=== PATIENT | female | born 1995 | race Caucasian/White ===

== ENCOUNTER → 2017-06-07 | Outpatient (CLI) | payer BC ==
--- NOTE | 2017-06-07 11:19 | US ---
EXAMINATION TYPE: US pelvis complete transvag DATE OF EXAM: 06/07/2017 COMPARISON: NONE CLINICAL HISTORY: R10.9 ABD PAIN. Pt states RLQ pain that started this AM TECHNIQUE: Transvaginal (TV) and Transabdominal (TA) Date of LMP: 04/27/2017 EXAM MEASUREMENTS: Uterus: 8.9 x 4.2 x 4.8 cm Endometrial Stripe: 1.1 cm Right Ovary: 3.7 x 2.2 x 2.7 cm Left Ovary: 2.6 x 1.6 x 2.7 cm 1. Uterus: Retroverted wnl 2. Endometrium: wnl 3. Right Ovary: Possible hemorrhagic cyst= 2.0 x 1.5 x 2.3 cm vs. Other etiology/ pt had HCG drawn, levels not available at time of exam 4. Left Ovary: wnl 5. Bilateral Adnexa: wnl 6. Posterior cul-de-sac: wnl Results called to Charissa at Dr's office at time of exam IMPRESSION: COMPLEX, 2 SWELLING 3 CM RIGHT OVARIAN CYST.
--- NOTE | 2017-06-07 11:20 | US ---
EXAMINATION TYPE: US abdomen APPY DATE OF EXAM: 06/07/2017 COMPARISON: NONE CLINICAL HISTORY: R10.9: UNSPECIFIED ABDOMINAL PAIN. Pt states RLQ pain that started this AM APPENDIX AP Diameter (normal < 6mm): 3 mm Measured outer wall to outer wall. Is the appendix seen in its entirety from the proximal cecum to distal end: No Is there inflammatory changes or free fluid present: No Appendix not visualized with certainty, however no abnormality could be visualized within RLQ Results called to Charissa at 's office at time of exam IMPRESSION: FAILURE TO VISUALIZE THE APPENDIX.
== END | disposition home or self-care (01) ==
LOC: RADUSWWP 10:07
PROVIDERS: ATTEND Internal Medicine
DX: N83.291 Other ovarian cyst, right side (principal)
CPT/HCPCS: 76705; 76830; 76856

== ENCOUNTER 2018-05-09 04:05 | Inpatient (IN) | payer BC, OTHER ==
[2018-05-09] MEDS ORDERED: CARBOPROST TROMETHAMINE 250 MCG/ML 1 ML AMP IM PRN (11:48)
[2018-05-09] MEDS ORDERED: LIDOCAINE 1% (PF) 10 MG/ML (30 ML SDV) SQ PRN (11:48)
[2018-05-09] MEDS ORDERED: TERBUTALINE 1 MG/ML VIAL SQ PRN (11:48)
[2018-05-09] MEDS ORDERED: METHYLERGONOVINE 0.2 MG/ML 1 ML AMP IM PRN (11:48)
[2018-05-09] MEDS ORDERED: OXYTOCIN 10 UNIT/ML 1 ML VIAL IM PRN (11:48)
[2018-05-09] MEDS ORDERED: OXYTOCIN 20 UNITS/1000 ML NS 1,000 ML IV SCH (12:00)
[2018-05-09 12:09] VITALS: BMI 21.7
[2018-05-09 12:20] LABS: Basophils % (A) 0 %; Eosinophils # (A) 0.1 k/uL (0-0.7); Eosinophils % (A) 2 %; HCT 37.2 % (34.0-46.0); HGB 12.8 gm/dL (11.4-16.0); Lymphocytes # (A) 1.3 k/uL (1.0-4.8); Lymphocytes % (A) 16 %; MCH 30.6 pg (25.0-35.0); MCHC 34.3 g/dL (31.0-37.0); MCV 89.2 fL (80.0-100.0); Mean Platelet Volume 6.9; Monocytes # (A) 0.6 k/uL (0-1.0); Monocytes % (A) 7 %; Neutrophils # (A) 5.6 k/uL (1.3-7.7); Neutrophils % (A) 72 %; Platelet Count 270 k/uL (150-450); RBC 4.17 m/uL (3.80-5.40); RDW 13.4 % (11.5-15.5); WBC 7.8 k/uL (3.8-10.6)
[2018-05-09] MEDS: LACTATED RINGERS 1,000 ML IV SCH (12:23)
--- NOTE | 2018-05-09 12:28 | P.HPOB ---
History of Present Illness H&P Date: 05/09/18 Chief Complaint: leaking of fluid This patient is a pleasant 22-year-old 1 para 0 female estimated date of confinement 05/24/2018 estimated gestational age 37-6/7 weeks who presents to labor and delivery with complaints of leaking of fluid at about 2:30 this morning. Patient's care has been uncomplicated. 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 Patient's declined any testing other than a routine ultrasound. I have counseled the patient on multiple occasions that the routine ultrasounds may not see the distal phalanges very well. Ultrasounds have been normal however. Patient is having rare contractions. Patient does have a history of herpes in the past however said no recent outbreaks and was placed prophylactically on acyclovir at 36 weeks. Review of Systems Gastrointestinal: Reports heartburn Genitourinary: Reports Menstruation: Reports amenorrhea Past Medical History Past Medical History: No Reported History Additional Past Medical History / Comment(s): Hx HSV- no current outbreak, congenital deformity of fingers and toes History of Any Multi-Drug Resistant Organisms: None Reported Past Surgical History: No Surgical Hx Reported Additional Past Surgical History / Comment(s): fingers seperated at 1 year of age Past Anesthesia/Blood Transfusion Reactions: No Reported Reaction Past Psychological History: No Psychological Hx Reported Smoking Status: Former smoker Past Alcohol Use History: None Reported Past Drug Use History: None Reported - Past Family History Mother Additional Family Medical History / Comment(s): congenital deformity of fingers and toes Medications and Allergies Home Medications Medication Instructions Recorded Confirmed Type valACYclovir [Valtrex] 500 mg PO DAILY 03/01/15 05/09/18 History Pnv No.95/Ferrous Fum/Folic AC 1 tab PO DAILY 05/09/18 05/09/18 History [ Multivitamin Tablet] Allergies Allergy/AdvReac Type Severity Reaction Status Date / Time No Known Allergies Allergy Verified 05/09/18 11:58 Exam - Vital Signs Vital signs: Vital Signs Temp Pulse Resp BP 05/09/18 11:57 97.8 F 83 16 108/67 Intake and Output 05/08/18 05/09/18 05/09/18 22:59 06:59 14:59 Other: Weight 52.163 kg - OBG Physical Exam Abdomen: bowel sounds normal, no diffuse tenderness, no bruit present, no guarding noted, no hepatomegaly, no splenomegaly, no mass Vulva: both: normal Vagina: normal moisture, no discharge Cervix: no lesion (cervix is 2 cm dilated with gross rupture membranes -2 station), no discharge Uterus: enlarged (fundal height is consistent with gestational age) Results blood work shows she is O-, rubella immune, RPR nonreactive, hepatitis B negative, HIV nonreactive, ultrasounds have been normal, Glucola was normal, group B strep was negative, patient received RhoGAM on February 28. Assessment and Plan Assessment: This is a pleasant 22-year-old 1 para 0 female 37-6/7 weeks gestation with spontaneous rupture membranes at 2:30 this morning. Patient is having irregular contractions and for this reason level augmentation of labor with Pitocin. Plan at this point is anticipate vaginal delivery. (1) Spontaneous rupture of amniotic membranes Current Visit: Yes Status: Acute Code(s): OFO1306 - SNOMED Code(s): 924494453 (2) Third trimester Current Visit: Yes Status: Acute Code(s): Z34.93 - ENCNTR FOR SUPRVSN OF NORMAL PREG, UNSP, THIRD TRIMESTER SNOMED Code(s): 63326510 (3) Rh negative status during Current Visit: Yes Status: Acute Code(s): O09.899 - SUPERVISION OF OTHER HIGH RISK PREGNANCIES, UNSP TRIMESTER; Z67.91 - UNSPECIFIED BLOOD TYPE, RH NEGATIVE SNOMED Code(s): 953566222
[2018-05-09] MEDS ORDERED: fentaNYL (PF) 50 MCG/ML 5 ML AMP ONE (12:58)
[2018-05-09] MEDS ORDERED: BUPIVACAINE (PF) 0.25% 30 ML VIAL ONE (12:58)
[2018-05-09] MEDS ORDERED: SODIUM CHLORIDE 0.9% 100 ML BAG ONE (12:58)
[2018-05-09] MEDS ORDERED: ROPIVACAINE 100 MG, fentaNYL (PF) 200 MCG in SODIUM CHLORIDE 0.9% 76 ML EPIDURAL ONE (13:35)
[2018-05-09] MEDS ORDERED: AMPICILLIN 2,000 MG in SODIUM CHLORIDE 0.9% 100 ML IVPB STA (20:54)
[2018-05-10] MEDS: LACTATED RINGERS 1,000 ML IV SCH (00:12)
--- NOTE | 2018-05-10 00:48 | P.PROBDLV ---
Vaginal Delivery Note - . Vaginal Delivery Note: Mirna progressed to complete and pushing. She pushed for almost 2 hours with the widest part of the baby's head relatively stopped at the level of the pubic pubic bones. There was a narrow angle anteriorly and despite what really felt like adequate pushing she was not bring the baby down any further. However there appeared to be ample space posteriorly if we can get the baby under the pubic bone. A discussion with her was made as well as her spouse and multiple family members on whether to proceed with a section for failure to descend or try at least 1 attempt at a vacuum-assisted delivery. Risks of vacuum-assisted delivery including cephalhematoma lacerations as well as even potentially brain injuries and bleeding into the brain were discussed very clearly with the patient and her spouse and after discussion of increased risk for bleeding or other complications intraoperatively due to how low the baby was it definitely increase her risk for injuries including bladder injuries as well as cervical lacerations and potential larger blood losses. After discussion they opted for 1 attempt with a vacuum assisted delivery. After digitally verifying left occipital anterior position based on suture lines, a Hernandez cup was placed over the baby's head and with her pushing was inflated to 40 mmHg. Using gentle traction to guide the baby down to the vaginal introitus with no pop offs and pulling during 3 contractions the baby's head was delivered without difficulty through a midline laceration. Following delivery of the head a nuchal cord 1 was noted and easily reduced. Once this was accomplished gentle downward traction was used to help assist with the delivery of the anterior shoulder followed by delivery of the posterior shoulder and the remainder the baby. Mouth nares were then bulb suctioned and baby was then placed on mother's abdomen where the umbilical cord was allowed to pulsate for 20 seconds prior to clamping and cutting. Once this was accomplished blood was collected for Rh antibody status. Inspection of the perineum revealed a fourth degree laceration. After injecting with a local anesthetic 3 interrupted 3-0 Vicryl sutures were placed to reapproximate the tissues over the rectum. Following this the external anal sphincter muscles were identified and reapproximated with a [id number]-dx-zsoak suture. Once this was accomplished a rectal exam was done verifying what felt to be good closure over the rectum. Another separate 3-0 Vicryl suture was then used to reapproximate the remainder of the laceration in usual fashion for an episiotomy. At conclusion another rectal exam was done and good rectal tone was felt to be obtained and a needle point was noted. No other findings were noted. scores were 8 and 9 at one and 5 minutes respectfully and the weight is 7 lbs. 3 oz. at this time both mother and baby appear stable.
[2018-05-10] MEDS ORDERED: AMPICILLIN 1,000 MG in SODIUM CHLORIDE 0.9% 50 ML IVPB SCH (01:00)
[2018-05-10] MEDS ORDERED: SIMETHICONE 80 MG CHEWABLE PO PRN (01:11)
[2018-05-10] MEDS ORDERED: HYDROCORTISONE 2.5% RECTAL CREAM 30 GM TUBE RECTAL PRN (01:11)
[2018-05-10] MEDS ORDERED: ZOLPIDEM 5 MG TAB PO PRN (01:11)
[2018-05-10] MEDS ORDERED: Rhogam IMMUNE GLOBULIN 1,500 UNIT/1 ML IM ONE (01:11)
[2018-05-10] MEDS ORDERED: diphenhydrAMINE 50 MG/ML 1 ML VIAL IVP PRN (01:11)
[2018-05-10] MEDS ORDERED: WITCH HAZEL 1 EACH MED..PAD TOPICAL PRN (01:11)
[2018-05-10] MEDS ORDERED: LANOLIN CREAM 5 GM TUBE TOPICAL PRN (01:11)
[2018-05-10] MEDS ORDERED: diphenhydrAMINE 25 MG CAP PO PRN (01:11)
[2018-05-10] MEDS ORDERED: BISACODYL 10 MG SUPP RECTAL PRN (01:11)
[2018-05-10] MEDS ORDERED: BENZOCAINE/MENTHOL SPRAY 1 GM/SPRAY AEROSOL TOPICAL PRN (01:11)
[2018-05-10] MEDS ORDERED: OXYTOCIN 20 UNITS/1000 ML NS 1,000 ML IV SCH (01:11)
[2018-05-10] MEDS: IBUPROFEN 600 MG TAB PO PRN ×3 (01:53→14:00)
--- NOTE | 2018-05-10 05:58 | P.PNOBGVD ---
Subjective - Subjective Patient reports: Reports appetite normal, Reports voiding normally, Reports pain well controlled, Reports ambulating normally : doing well Objective - Latest Vital Signs Latest vital signs: Vital Signs Temp Pulse Resp BP 05/10/18 02:32 86 18 102/56 05/10/18 01:58 98.0 F 60 16 104/61 05/10/18 01:32 99.6 F 73 18 119/70 05/10/18 01:17 76 18 116/67 05/10/18 01:02 76 18 116/67 05/10/18 00:47 98.9 F 92 18 120/68 05/10/18 00:32 99.1 F 91 18 120/70 05/09/18 11:57 97.8 F 83 16 108/67 Intake and Output 05/09/18 05/09/18 05/10/18 14:59 22:59 06:59 Intake Total 1000 1000 Balance 1000 1000 Intake: IV 1000 1000 Lactated Ringers 1,000 ml 1000 1000 @ 125 mls/hr IV .Q8H [facility] Rx#:[id number] Other: # Voids 1 Weight 52.163 kg - Exam Lungs: bilateral: normal Chest: Normal S1, Normal S2 Extremities: Present: normal Abdomen: Present: normal appearance, soft Uterus: Present: normal, firm Assessment and Plan Assessment: day #0. Patient is resting without complaints. Vital signs are stable she is afebrile. Uterus is firm nontender she's having normal lochia. Plan today is to continue routine care, encourage ambulation. (1) Spontaneous rupture of amniotic membranes Current Visit: Yes Status: Acute Code(s): NIN8176 - SNOMED Code(s): 521004219 (2) Third trimester Current Visit: Yes Status: Acute Code(s): Z34.93 - ENCNTR FOR SUPRVSN OF NORMAL PREG, UNSP, THIRD TRIMESTER SNOMED Code(s): 65979193 (3) Rh negative status during Current Visit: Yes Status: Acute Code(s): O09.899 - SUPERVISION OF OTHER HIGH RISK PREGNANCIES, UNSP TRIMESTER; Z67.91 - UNSPECIFIED BLOOD TYPE, RH NEGATIVE SNOMED Code(s): 523442538
[2018-05-10] MEDS: SENNOSIDES-DOCUSATE SODIUM 1 EACH TAB PO SCH ×2 (06:02→08:07)
[2018-05-10 11:09] VITALS: RESP 16
[2018-05-10] MEDS: ACETAMINOPHEN TAB 325 MG TAB PO PRN (22:20)
[2018-05-11] MEDS: SENNOSIDES-DOCUSATE SODIUM 1 EACH TAB PO SCH ×3 (03:26→19:58)
--- NOTE | 2018-05-11 06:20 | P.PNOBGVD ---
Subjective - Subjective Patient reports: Reports appetite normal, Reports voiding normally, Reports pain well controlled, Reports ambulating normally : doing well, in NICU (Infant apparently has elevated hemoglobin is getting some IV hydration.) Objective - Latest Vital Signs Latest vital signs: Vital Signs Temp Pulse Resp BP 05/11/18 00:00 98.2 F 92 16 95/55 05/10/18 16:00 98.3 F 64 16 92/54 05/10/18 08:00 97.0 F L 65 16 89/52 Intake and Output 05/10/18 05/10/18 05/11/18 14:59 22:59 06:59 Other: # Voids 1 1 # Bowel Movements 1 1 - Exam Lungs: bilateral: normal Chest: Normal S1, Normal S2 Extremities: Present: normal Abdomen: Present: normal appearance, soft Uterus: Present: normal, firm Assessment and Plan Assessment: Post day #1. Patient is resting without complaints. Her son is in the NICU secondary to elevated hemoglobin is getting some IV hydration. Patient is requesting to go home today, although she does understand there is a good chance her baby may not be able to go home felt tomorrow and the following day. Patient's vital signs are stable she is afebrile. Uterus is firm nontender she's having normal lochia. My impression this is a normal course. Plan is to continue routine care discharge home later today. (1) Spontaneous rupture of amniotic membranes Current Visit: Yes Status: Acute Code(s): VLN6586 - SNOMED Code(s): 825630384 (2) Third trimester Current Visit: Yes Status: Acute Code(s): Z34.93 - ENCNTR FOR SUPRVSN OF NORMAL PREG, UNSP, THIRD TRIMESTER SNOMED Code(s): 49011872 (3) Rh negative status during Current Visit: Yes Status: Acute Code(s): O09.899 - SUPERVISION OF OTHER HIGH RISK PREGNANCIES, UNSP TRIMESTER; Z67.91 - UNSPECIFIED BLOOD TYPE, RH NEGATIVE SNOMED Code(s): 098571412
--- NOTE | 2018-05-11 06:25 | P.DS ---
Providers Date of admission: 05/09/18 04:05 Expected date of discharge: 05/11/18 Attending physician: Omkar Payne Primary care physician: Omkar Payne - Discharge Diagnosis(es) (1) Spontaneous rupture of amniotic membranes Current Visit: Yes Status: Acute (2) Third trimester Current Visit: Yes Status: Acute (3) Rh negative status during Current Visit: Yes Status: Acute Hospital Course: Please see dictated H&P for intimate details of this patient's admission. In brief summary this is a pleasant 22-year-old 1 para 0 female 37-6/7 weeks gestation admitted to labor and delivery with spontaneous rupture membranes. Patient goes on to have a vaginal delivery of viable male . Please see dictated delivery note per Dr. Ram. Delivery is complicated by a fourth degree laceration. Post day #1 patient wishes to go home felt be stable for discharge home follow up with me in 6 weeks. Procedures: Normal spontaneous vaginal delivery Patient Condition at Discharge: Good Plan - Discharge Summary New Discharge Prescriptions: New Acetaminophen Tab [Tylenol] 650 mg PO Q4HR PRN #30 tab PRN Reason: Mild Pain Or Fever >= 100.5 Ibuprofen [Motrin] 600 mg PO Q6HR PRN #40 tab PRN Reason: Mild Pain Or Fever >= 100.5 No Action valACYclovir [Valtrex] 500 mg PO DAILY Pnv No.95/Ferrous Fum/Folic AC [ Multivitamin Tablet] 1 tab PO DAILY Discharge Medication List valACYclovir [Valtrex] 500 mg PO DAILY 03/01/15 [History] Pnv No.95/Ferrous Fum/Folic AC [ Multivitamin Tablet] 1 tab PO DAILY [History] Acetaminophen Tab [Tylenol] 650 mg PO Q4HR PRN #30 tab 05/11/18 [Rx] Ibuprofen [Motrin] 600 mg PO Q6HR PRN #40 tab 05/11/18 [Rx] Follow up Appointment(s)/Referral(s): Omkar Payne MD [Primary Care Provider] - 06/20/18 11:15 am Patient Instructions/Handouts: Vaginal Delivery (DC) Activity/Diet/Wound Care/Special Instructions: No intercourse or anything per vagina for 6 weeks. Please call if any fever, chills, excessive vaginal bleeding, and/or abdominal pain. Discharge Disposition: HOME SELF-CARE
[2018-05-11] MEDS: IBUPROFEN 600 MG TAB PO PRN ×2 (06:35→16:13)
[2018-05-11] MEDS: ACETAMINOPHEN TAB 325 MG TAB PO PRN ×2 (10:07→23:15)
--- NOTE | 2018-05-12 07:02 | P.PN ---
Progress Note - Text Progress Note Date: 05/12/18 Post day #2. Patient's baby needed to stay overnight and therefore she decided to stay in the hospital as well. Vital signs are stable she is afebrile. Uterus is firm nontender she's having normal lochia. I impression is normal course. Plan is to continue routine care discharge home today.
[2018-05-12 08:21] VITALS: BP 91/54; PULSE 80; TEMP 98
[2018-05-12] MEDS: IBUPROFEN 600 MG TAB PO PRN (08:23)
[2018-05-12] MEDS: SENNOSIDES-DOCUSATE SODIUM 1 EACH TAB PO SCH (08:24)
== END 2018-05-12 11:05 | disposition home or self-care (01) | DRG 775 ==
LOC: 4FBP 04:05
PROVIDERS: ADMIT Obstetrics & Gynecology; ATTEND Obstetrics & Gynecology
PROC: 10D07Z6 Extraction of Products of Conception, Vacuum, Via Natural or Artificial Opening (ICD-10-PCS; principal; 2018-05-10)
PROC: 0DQP0ZZ Repair Rectum, Open Approach (ICD-10-PCS; 2018-05-10)
DX: O69.81X0 Labor and delivery complicated by cord around neck, without compression, not applicable or unspecified (principal); O70.3 Fourth degree perineal laceration during delivery; O26.893 Other specified pregnancy related conditions, third trimester; Q71 Reduction defects of upper limb; Z37.0 Single live birth; Z3A.37 37 weeks gestation of pregnancy; Z67.91 Unspecified blood type, Rh negative; Z87.891 Personal history of nicotine dependence; Z86.19 Personal history of other infectious and parasitic diseases
CPT/HCPCS: 59025; 84112; 85025; 85461; 99213

== ENCOUNTER → 2019-02-13 | Outpatient (CLI) | payer BC, OTHER ==
--- NOTE | 2019-02-13 14:22 | US ---
EXAMINATION TYPE: Transabdominal DATE OF EXAM: 02/13/2019 2:06 PM COMPARISON: NONE CLINICAL HISTORY: Z36 Confirm Dates. Confirm dates EXAM PERFORMED: Transvaginal (TV) and Transabdominal (TA) EXAM MEASUREMENTS: GESTATIONAL AGE / DATING Physician Established: Not yet established Dates by LMP: 12/17/2018 (8 weeks/2 days) EDC: 09/23/2019 Dates by First Scan: This is first scan (8 weeks/3 days) EDC: 09/22/2019 Dates by Current Scan for: (8 weeks/3 days) EDC: 09/22/2019 MATERNAL ANATOMY Uterus: 9.8 x 8.9 x 7.6cm Right Ovary: 3.0 x 1.1 x 1.8 cm Left Ovary: 4.0 x 3.4 x 3.4 cm Post CDS / Adnexa: WNL Presence of free fluid: No fluid seen Presence of corpus luteal cyst: Anechoic area with peripheral vascularity seen left ovary: 3.1 x 2.6 x 2.6 cm Presence of subchorionic bleed: No GESTATION / SURVEY CRL: 1.93 (8 weeks/3 days) Yolk Sac (normal less than 6mm): 2.8 mm Heart Rate: 178 bpm Rhythm: Normal IUP: Viable IUP Date of LMP: 12/17/2018 Beta HcG (if available): N/A IMPRESSION: Findings compatible with a viable intrauterine of 8 weeks 3 days with a heart rate of 178 b pm.
[2019-02-13 14:29] LABS: HCT 38.8 % (34.0-46.0); HGB 12.9 gm/dL (11.4-16.0); MCH 29.3 pg (25.0-35.0); MCHC 33.3 g/dL (31.0-37.0); MCV 87.9 fL (80.0-100.0); Mean Platelet Volume 7.2; Platelet Count 283 k/uL (150-450); RBC 4.42 m/uL (3.80-5.40); RDW 13.9 % (11.5-15.5); WBC 6.5 k/uL (3.8-10.6)
[2019-02-13 14:38] LABS: Glucose 71 mg/dL (74-99)
[2019-02-14 04:23] LABS: Toxoplasma Antibody (IgG) <3.0 IU/mL (<7.2); Toxoplasma Antibody (IgM) <3.0 AU/mL (<8.0)
== END ==
LOC: RADUSWWP 12:42
PROVIDERS: ATTEND Obstetrics & Gynecology
DX: Z36.89 Encounter for other specified antenatal screening (principal); Z34.81 Encounter for supervision of other normal pregnancy, first trimester; Z3A.08 8 weeks gestation of pregnancy
CPT/HCPCS: 76801; 76817; 82565; 82947; 85027; 86762; 86777; 86778; 86780; 86850; 86900; 86901; 87340

== ENCOUNTER 2019-09-16 05:44 | Inpatient (IN) | payer BC, OTHER ==
[2019-09-11 15:12] VITALS: BMI 22.3
--- NOTE | 2019-09-15 12:03 | P.HPOB ---
History of Present Illness H&P Date: 09/15/19 Chief Complaint: Primary C/S due to previous traumatic vaginal delivery This patient is a pleasant 23 yr female EDC 09/23/2019 estimated gestational age 39 weeks who presents for a primary section due to previous traumatic vaginal delivery. Patient's last was complicated by vacuum extraction and subsequent 4th degree laceration. She has had some rectal symptoms since that delivery, and therefore I advised section to avoid further problems. has been otherwise uncomplicated. Patient does have known congenital / hereditary hand and foot abnormalities, but she has declined any MFM referral / testing. Her previous child is unaffected, but she herself and multiple family members have hand and foot congenital abnormalities. Review of Systems Genitourinary: Reports Menstruation: Reports amenorrhea Past Medical History Past Medical History: No Reported History Additional Past Medical History / Comment(s): Congenital deformity of fingers and toes History of Any Multi-Drug Resistant Organisms: None Reported Past Surgical History: No Surgical Hx Reported Additional Past Surgical History / Comment(s): fingers seperated at 1 year of age Past Anesthesia/Blood Transfusion Reactions: No Reported Reaction Past Psychological History: No Psychological Hx Reported Smoking Status: Former smoker Past Alcohol Use History: None Reported Past Drug Use History: None Reported - Past Family History Mother Additional Family Medical History / Comment(s): congenital deformity of fingers and toes Medications and Allergies Home Medications Medication Instructions Recorded Confirmed Type Pnv No.95/Ferrous Fum/Folic AC 1 tab PO DAILY 05/09/18 09/11/19 History [ Multivitamin Tablet] Allergies Allergy/AdvReac Type Severity Reaction Status Date / Time No Known Allergies Allergy Verified 09/11/19 15:04 Exam - OBG Physical Exam Abdomen: bowel sounds normal, no diffuse tenderness, no bruit present, no guarding noted, no hepatomegaly, no splenomegaly, no mass Vulva: both: normal Vagina: normal moisture, no discharge Cervix: no lesion, no discharge Uterus: enlarged (Fundal height is 38 cm.) Bilateral hand/foot defects Results labs: O negative (received Rhogam on 06/24/2019), Rubella Immune, RPR- HepB negative, Glucola 78, Ultrasounds have been normal. Assessment and Plan Assessment: This is a pleasant 23 yr female 39 weeks gestation with history of previous traumatic vaginal delivery who is requesting primary section. Plan is primary section. I have discussed this surgery in detail including the risks: infection, bleeding, possible injury to bowel/bladder/vessel and/or other organs. She also understands the risk of DVT and PE. We have also discussed on multiple occasions that her family history of limb defects and the limitations of ultrasounds. (1) 39 weeks gestation of Status: Acute Code(s): Z3A.39 - 39 WEEKS GESTATION OF SNOMED Code(s): 29664486 (2) Rh negative status during Status: Acute Code(s): O09.899 - SUPERVISION OF OTHER HIGH RISK PREGNANCIES, UNSP TRIMESTER; Z67.91 - UNSPECIFIED BLOOD TYPE, RH NEGATIVE SNOMED Code(s): 296621207 (3) Traumatic extension of episiotomy Status: Acute Code(s): O71.89 - OTHER SPECIFIED OBSTETRIC TRAUMA SNOMED Code(s): 75581566
[2019-09-16] MEDS ORDERED: LACTATED RINGERS 1,000 ML IV ONE (06:02)
[2019-09-16] MEDS ORDERED: LACTATED RINGERS 1,000 ML IV SCH (06:02)
[2019-09-16] MEDS ORDERED: CITRIC ACID-SODIUM CITRATE 15 ML CUP PO ONE (06:02)
[2019-09-16 06:26] LABS: Basophils % (A) 0 %; Eosinophils # (A) 0.2 k/uL (0-0.7); Eosinophils % (A) 3 %; HGB 12.5 gm/dL (11.4-16.0); Lymphocytes # (A) 1.2 k/uL (1.0-4.8); Lymphocytes % (A) 17 %; MCH 30.8 pg (25.0-35.0); MCHC 33.8 g/dL (31.0-37.0); Mean Platelet Volume 6.4; Monocytes # (A) 0.6 k/uL (0-1.0); Monocytes % (A) 9 %; Neutrophils % (A) 67 %; Platelet Count 282 k/uL (150-450); RBC 4.07 m/uL (3.80-5.40); WBC 7.4 k/uL (3.8-10.6)
[2019-09-16] MEDS ORDERED: ONDANSETRON 4 MG/2 ML VIAL ONE (07:46)
[2019-09-16] MEDS ORDERED: NALBUPHINE 10 MG/ML (1 ML AMP) ONE (07:46)
[2019-09-16] MEDS ORDERED: OXYTOCIN 10 UNIT/ML 1 ML VIAL ONE (07:46)
[2019-09-16] MEDS ORDERED: KETOROLAC 30 MG/ML 1 ML VIAL ONE (07:46)
[2019-09-16] MEDS ORDERED: MORPHINE SULFATE (PF) 0.3 MG/0.3 ML SYR ONE (07:46)
--- NOTE | 2019-09-16 08:38 | P.OP ---
Date of Procedure: 09/16/19 Preoperative Diagnosis: #1: 39-0/7 week . #2: Previous traumatic vaginal delivery requesting . Postoperative Diagnosis: Same Procedure(s) Performed: Primary low transverse section Anesthesia: spinal Surgeon: Omkar Payne [place] Interpreter #1: Rahel Patel Estimated Blood Loss (ml): 600 Pathology: none sent Condition: stable Disposition: floor Indications for Procedure: Please see dictated H&P for intimate details of this patient's admission. Brief summary is a pleasant 23-year-old 2 para 1 female 39 weeks gestation admitted to labor and delivery for primary section due to history of previous traumatic vaginal delivery. Patient understands this surgery and risks including risks of infection, bleeding, possible injury to bowel, bladder, vessels, and/or other organs. All the patient's questions are answered written consent is obtained. Operative Findings: This is a vigorous viable male Apgars 8 and 9 delivery time is 0807 hours. Double nuchal cord. Description of Procedure: This patient is taken to the operating room where she sat up and spinal anesthetic is administered without incident. She previously had a Fine catheter placed to straight drain. With an adequate level of anesthesia she has abdominal prep and drape. Scalpels and taken Pfannenstiel skin incision is made. A second scalpel is taken down to the fascia and the fascia scored. Fascial incision extended bilaterally using the Paul scissors. Fascia is dissected off the rectus muscles sharply. Rectus muscles are the peritoneum identified and entered sharply. Peritoneal incision extended superior and inferior without difficulty. Bladder blade is then placed. Bladder peritoneum was taken sharply off the lower uterine segment. Scalpels and taken a low transverse uterine incision is made. Hemostat is then used gently to enter the uterine cavity and there is loss of clear fluid. Incision is extended bluntly. 's head is guided through the incision with fundal pressure and mouth and nares are bulb suctioned. There is a double nuchal cord which is easily reduced. We then deliver the rest this 's body. Is a vigorous viable male infant Apgars are 8 and 9 delivery time is 0807 hrs. After delivery of the the umbilical cord is doubly clamped and cut it appears to be trivascular. Cord blood is obtained. Placenta is then manually extracted intact. Uterus is then externalized uterine incision demarcated with Grossman clamps. Uterine incision then closed using 0 Vicryl running locked fashion 2 layers. Excellent hemostasis is noted. Bladder peritoneum was then reapproximated using a 3-0 Vicryl running fashion. Excess fluid is removed from the abdomen and pelvis. Uterus tubes and ovaries appear normal for term gestation. Uterus placed back into the abdomen. Parietal peritoneum was then closed using 0 Vicryl running fashion. Rectus muscles were approximate Vicryl interrupted fashion. Fascia is then closed using 0 PDS. She'll incision is intact and hemostatic. Subcutaneous tissues and closed using a 3-0 Vicryl. Skin is and closed using devika. All counts are correct 3. There are no complications. and mother are stable delivery room.
[2019-09-16] MEDS ORDERED: ONDANSETRON 4 MG/2 ML VIAL IVP PRN (09:06)
[2019-09-16] MEDS ORDERED: NALOXONE 0.4 MG/ML 1 ML VIAL IV PRN (09:06)
[2019-09-16] MEDS ORDERED: OXYTOCIN 20 UNITS/1000 ML NS 1,000 ML IV SCH (09:06)
[2019-09-16] MEDS ORDERED: ACETAMINOPHEN TAB 325 MG TAB PO PRN (09:06)
[2019-09-16] MEDS ORDERED: Rhogam IMMUNE GLOBULIN 1,500 UNIT/1 ML IM ONE (09:06)
[2019-09-16] MEDS ORDERED: SIMETHICONE 80 MG CHEWABLE PO PRN (09:06)
[2019-09-16] MEDS ORDERED: ZOLPIDEM 5 MG TAB PO PRN (09:06)
[2019-09-16] MEDS ORDERED: METOCLOPRAMIDE 5 MG/ML 2 ML VIAL IVP PRN (09:06)
[2019-09-16] MEDS ORDERED: LANOLIN CREAM 5 GM TUBE TOPICAL PRN (09:06)
[2019-09-16] MEDS ORDERED: diphenhydrAMINE 50 MG/ML 1 ML VIAL IVP PRN (09:06)
[2019-09-16] MEDS ORDERED: diphenhydrAMINE 25 MG CAP PO PRN (09:06)
[2019-09-16] MEDS: SENNOSIDES-DOCUSATE SODIUM 1 EACH TAB PO SCH (10:57)
[2019-09-16] MEDS: LACTATED RINGERS 1,000 ML IV SCH ×2 (11:08→17:47)
[2019-09-16] MEDS: KETOROLAC 30 MG/ML 1 ML VIAL IVP PRN (17:05)
[2019-09-16 21:17] VITALS: RESP 16
--- NOTE | 2019-09-17 06:20 | P.PNOBGPC ---
Subjective - Subjective Patient reports: Reports appetite normal, Reports voiding normally, Reports pain well controlled, Reports ambulating normally : doing well Objective - Vital Signs Latest vital signs: Vital Signs Temp Pulse Resp BP Pulse Ox 09/17/19 04:00 98.2 F 64 16 81/47 99 09/17/19 00:00 98.2 F 62 16 78/41 97 09/16/19 20:00 98 F 61 16 87/47 98 09/16/19 16:30 97.5 F L 69 18 97/54 97 09/16/19 12:00 98.0 F 62 16 105/65 98 09/16/19 10:34 98.1 F 71 16 94/64 98 09/16/19 10:04 62 16 97/55 98 09/16/19 09:34 65 16 125/61 98 09/16/19 09:19 65 16 101/68 98 09/16/19 09:04 75 16 95/54 98 09/16/19 08:49 77 16 91/50 98 09/16/19 08:34 98.2 F 78 18 106/67 98 09/16/19 06:36 96.8 F L 82 16 108/56 Intake and Output 09/16/19 09/16/19 09/17/19 14:59 22:59 06:59 Output Total 700 1200 400 Balance -700 -1200 -400 Output: Urine 700 900 400 Uretheral (Fine) 300 Other 300 Other: # Voids 1 1 - Exam Lungs: bilateral: normal Chest: Normal S1, Normal S2 Extremities: Present: normal Abdomen: Present: normal appearance, soft. Absent: distention, tenderness Incision: Present: normal, dry, intact Uterus: Present: normal, firm Assessment and Plan Assessment: Postoperative day #1. Patient is resting without complaints. Vital signs are s table she's afebrile. Her incision is intact and dry. CBC pending at time of this dictation. Plan today is to continue ambulation, allow the patient to shower, continue regular diet, and check a CBC. (1) 39 weeks gestation of Current Visit: No Status: Acute Code(s): Z3A.39 - 39 WEEKS GESTATION OF SNOMED Code(s): 68461166 (2) Rh negative status during Current Visit: No Status: Acute Code(s): O09.899 - SUPERVISION OF OTHER HIGH RISK PREGNANCIES, UNSP TRIMESTER; Z67.91 - UNSPECIFIED BLOOD TYPE, RH NEGATIVE SNOMED Code(s): 656466237 (3) Traumatic extension of episiotomy Current Visit: No Status: Acute Code(s): O71.89 - OTHER SPECIFIED OBSTETRIC TRAUMA SNOMED Code(s): 73433577
[2019-09-17] MEDS: KETOROLAC 30 MG/ML 1 ML VIAL IVP PRN (07:39)
[2019-09-17 07:58] LABS: Basophils % (A) 0 %; Eosinophils # (A) 0.1 k/uL (0-0.7); Eosinophils % (A) 1 %; HCT 34.2 % (34.0-46.0); HGB 11.5 gm/dL (11.4-16.0); Lymphocytes # (A) 0.8 k/uL (1.0-4.8); Lymphocytes % (A) 11 %; MCH 30.9 pg (25.0-35.0); MCHC 33.7 g/dL (31.0-37.0); MCV 91.5 fL (80.0-100.0); Mean Platelet Volume 6.4; Monocytes # (A) 0.6 k/uL (0-1.0); Monocytes % (A) 9 %; Neutrophils # (A) 5.6 k/uL (1.3-7.7); Neutrophils % (A) 76 %; Platelet Count 240 k/uL (150-450); RBC 3.74 m/uL (3.80-5.40); WBC 7.4 k/uL (3.8-10.6)
[2019-09-17] MEDS: SENNOSIDES-DOCUSATE SODIUM 1 EACH TAB PO SCH ×2 (08:37→21:17)
[2019-09-17] MEDS: HYDROcodone/APAP 5-325MG 1 EACH TAB PO PRN ×2 (11:03→19:37)
--- NOTE | 2019-09-17 11:20 | P.PN ---
Progress Note - Text Anesthesia POD 1, 0645. Patient is status post section under spinal anesthesia with intra-thecal preservative free morphine 100 g. Minimal pruritus, good post-op analgesia, and no headache or other complications.
[2019-09-17] MEDS: IBUPROFEN 600 MG TAB PO PRN (13:51)
[2019-09-18] MEDS: IBUPROFEN 600 MG TAB PO PRN (04:19)
--- NOTE | 2019-09-18 06:37 | P.PNOBGPC ---
Subjective - Subjective Patient reports: Reports appetite normal, Reports voiding normally, Reports pain well controlled, Reports ambulating normally : doing well Objective - Vital Signs Latest vital signs: Vital Signs Temp Pulse Resp BP Pulse Ox 09/18/19 00:00 98.1 F 71 16 83/54 98 09/17/19 16:00 98.3 F 72 16 90/62 09/17/19 08:00 97.8 F 76 16 84/68 Intake and Output 09/17/19 09/17/19 09/18/19 14:59 22:59 06:59 Other: # Voids 1 1 1 - Exam Lungs: bilateral: normal Chest: Normal S1, Normal S2 Extremities: Present: normal Abdomen: Present: normal appearance, soft. Absent: distention, tenderness Incision: Present: normal, dry, intact Uterus: Present: normal, firm - Labs Labs: Abnormal Lab Results - Last 24 Hours (Table) 09/17/19 Range/Units 06:35 RBC 3.74 L (3.80-5.40) m/uL Lymphocytes # 0.8 L (1.0-4.8) k/uL Assessment and Plan Assessment: Postoperative day #2. Patient is resting without complaints and wishes to go home. Vital signs are stable she is afebrile. Uterus is firm nontender and her incision is intact and dry. CBC was normal yesterday. Patient's ambulating and urinating without difficulty. Plan today is to continue routine postoperative care and discharge home later today (1) 39 weeks gestation of Current Visit: No Status: Acute Code(s): Z3A.39 - 39 WEEKS GESTATION OF SNOMED Code(s): 25593845 (2) Rh negative status during Current Visit: No Status: Acute Code(s): O09.899 - SUPERVISION OF OTHER HIGH RISK PREGNANCIES, UNSP TRIMESTER; Z67.91 - UNSPECIFIED BLOOD TYPE, RH NEGATIVE SNOMED Code(s): 918860985 (3) Traumatic extension of episiotomy Current Visit: No Status: Acute Code(s): O71.89 - OTHER SPECIFIED OBSTETRIC TRAUMA SNOMED Code(s): 14991252
--- NOTE | 2019-09-18 06:44 | P.DS ---
Providers Date of admission: 09/16/19 05:44 Expected date of discharge: 09/18/19 Attending physician: Omkar Payne Primary care physician: Vincent Escalante - Discharge Diagnosis(es) (1) 39 weeks gestation of Current Visit: No Status: Acute (2) Rh negative status during Current Visit: No Status: Acute (3) Traumatic extension of episiotomy Current Visit: No Status: Acute Hospital Course: Please see dictated H&P for intimate details of this patient's admission. Brief summary this is a pleasant 23-year-old 2 para 1 female 39 weeks gestation is admitted to labor and delivery for elective primary section secondary previous traumatic vaginal delivery. Patient with a primary low transverse section for viable male . Please see dictated delivery note. Postoperative patient does well on postoperative day #2 she is felt to be stable for discharge home follow up with me in 1 week. Call should any fever, chills, excessive vaginal bleeding and/or abdominal pain. Procedures: Primary low transverse section Patient Condition at Discharge: Good Plan - Discharge Summary Discharge Rx Participant: Yes New Discharge Prescriptions: New Ibuprofen [Motrin] 600 mg PO Q6HR PRN #30 tab PRN Reason: Mild Pain Or Fever >= 100.5 HYDROcodone/APAP 5-325MG [[place] 5-325] 1 each PO Q4HR PRN #18 tab PRN Reason: Moderate Pain No Action Pnv No.95/Ferrous Fum/Folic AC [ Multivitamin Tablet] 1 tab PO DAILY Discharge Medication List Pnv No.95/Ferrous Fum/Folic AC [ Multivitamin Tablet] 1 tab PO DAILY 05/09/18 [History] HYDROcodone/APAP 5-325MG [[place] 5-325] 1 each PO Q4HR PRN #18 tab 09/18/19 [Rx] Ibuprofen [Motrin] 600 mg PO Q6HR PRN #30 tab 09/18/19 [Rx] Follow up Appointment(s)/Referral(s): Omkar Payne MD [STAFF PHYSICIAN] - 09/26/19 (Patient also has a appointment on October 29 at 10:15 AM) Patient Instructions/Handouts: (DC) Activity/Diet/Wound Care/Special Instructions: No heavy lifting or strenuous activity for 6 weeks. No intercourse or anything per vagina for 6 weeks. Please call if any fever, chills, excessive vaginal bleeding, and/or abdominal pain. Discharge Disposition: HOME SELF-CARE
[2019-09-18 08:12] VITALS: BP 94/55; PULSE 79; TEMP 97.7
[2019-09-18] MEDS: HYDROcodone/APAP 5-325MG 1 EACH TAB PO PRN (10:21)
[2019-09-18] MEDS: SENNOSIDES-DOCUSATE SODIUM 1 EACH TAB PO SCH (10:35)
== END 2019-09-18 14:40 | disposition home or self-care (01) | DRG 788 ==
LOC: 4FBP 05:44
PROVIDERS: ADMIT Obstetrics & Gynecology; ATTEND Obstetrics & Gynecology
PROC: 10D00Z1 Extraction of Products of Conception, Low, Open Approach (ICD-10-PCS; principal; 2019-09-16 08:00)
DX: O69.81X0 Labor and delivery complicated by cord around neck, without compression, not applicable or unspecified (principal); Z37.0 Single live birth; Z3A.39 39 weeks gestation of pregnancy; Z87.891 Personal history of nicotine dependence; O26.893 Other specified pregnancy related conditions, third trimester; Z67.91 Unspecified blood type, Rh negative
CPT/HCPCS: 85025; 85461; 86850; 86900; 86901

== ENCOUNTER 2019-10-05 20:17 | Emergency (ER) | payer BC, OTHER ==
[2019-10-05 20:27] VITALS: BP 112/75; PULSE 81; RESP 18; TEMP 97.6
[2019-10-05 21:23] LABS: Appearance,Urine Clear (Clear); Bacteria,Urine Rare /hpf; Basophils # (A) 0.1 k/uL (0-0.2); Basophils % (A) 1 %; Bilirubin,Urine Negative (Negative); Blood,Urine Moderate (Negative); Color,Urine Yellow; Eosinophils # (A) 0.3 k/uL (0-0.7); Eosinophils % (A) 5 %; Glucose,Urine (UA) Negative (Negative); HCT 41.8 % (34.0-46.0); Ketones,Urine Negative (Negative); Leukocyte Esterase,Urine Small (Negative); Lymphocytes # (A) 1.4 k/uL (1.0-4.8); Lymphocytes % (A) 28 %; MCH 30.4 pg (25.0-35.0); MCHC 33.5 g/dL (31.0-37.0); MCV 90.9 fL (80.0-100.0); Mean Platelet Volume 6.1; Monocytes # (A) 0.3 k/uL (0-1.0); Monocytes % (A) 6 %; Mucus,Urine Rare /hpf; Neutrophils % (A) 57 %; Nitrite,Urine Negative (Negative); Platelet Count 348 k/uL (150-450); Protein,Urine Negative (Negative); RBC,Urine 10 /hpf (0-5); RDW 11.8 % (11.5-15.5); Specific Gravity,Urine 1.013 (1.001-1.035); Urobilinogen,Urine <2.0 mg/dL (<2.0); WBC 5.2 k/uL (3.8-10.6); WBC,Urine 3 /hpf (0-5)
[2019-10-05 21:33] LABS: ALT 18 U/L (9-52); AST 24 U/L (14-36); African American GFR (CKD) >90 (>60 ml/min/1.73 sqM); Albumin 4.3 g/dL (3.5-5.0); Alkaline Phosphatase 103 U/L (38-126); Anion Gap 8 mmol/L; Blood Urea Nitrogen 12 mg/dL (7-17); Calcium 9.9 mg/dL (8.4-10.2); Carbon Dioxide 26 mmol/L (22-30); Chloride 109 mmol/L (98-107); Glucose 103 mg/dL (74-99); Non-African American GFR(CKD) >90 (>60 ml/min/1.73 sqM); Potassium 4.1 mmol/L (3.5-5.1); Sodium 143 mmol/L (137-145); Total Bilirubin 0.2 mg/dL (0.2-1.3); Total Protein 7.5 g/dL (6.3-8.2)
--- NOTE | 2019-10-05 22:56 | US ---
EXAMINATION TYPE: US transvaginal DATE OF EXAM: 10/05/2019 COMPARISON: US CLINICAL HISTORY: vaginal bleeding . Vaginal bleeding today 3 weeks post C section delivery, prior va ginal bleeding and [employer] was aware; breast feeding; TECHNIQUE: Transvaginal (TV). Transvaginal sonographic images were medically necessary to better as sess the following anatomy: endometrium Date of LMP: unknown EXAM MEASUREMENTS: Uterus: 10.8 x 7.2 x 6.5 cm Endometrium: fluid area within = 6.2 x 2.5 x 2.6cm Right Ovary: 3.1 x 2.5 x 2.3 cm Left Ovary: cm 1. Uterus: retroverted 2. Endometrium: complex fluid area within and as measured above 3. Right Ovary: small follicles seen 4. Left Ovary: small follicles seen Spectral, color and waveform Doppler imaging shows good arterial and venous flow within the ovaries ; there is no evidence for ovarian torsion. 5. Bilateral Adnexa: wnl 6. Posterior cul-de-sac: small amount of free fluid is noted = 2.3 x 4.5 x 1.6 x 0.523 = 8.7ml (wnl as is less than 10.0ml) IMPRESSION: There is fluid-filled enlarged endometrial cavity that measures 6 x 2.6 cm. This could be ongoing ble eding and blood clot. Retained products not excluded.. Small amount of free fluid in the pelvis. No evidence of ovarian torsion. No adnexal mass.
--- NOTE | 2019-10-06 00:12 | ED ---
General Adult HPI - General Chief complaint: Vaginal Bleeding Stated complaint: Vaginal bleeding Time Seen by Provider: 10/05/19 20:33 Source: patient, RN notes reviewed, old records reviewed Mode of arrival: ambulatory Limitations: no limitations - History of Present Illness Initial comments: 23-year-old female patient with a pertinent past history of a section on September 16 presents to ED for chief complaint of vaginal bleeding. Patient reports that this began approximately one hour prior to arrival in the ED. Reports it is dark red blood. Prostate extremely mild amount of suprapubic discomfort. Denies any other discharge from vaginal region. Denies any fevers chills. Systemic: Pt denies fatigue, fever/chills, rash. Pt denies weakness, night sweats, weight loss. Neuro: Pt denies headache, visual disturbances, syncope or pre-syncope. HEENT: Pt denies ocular discharge or irritation, otalgia, rhinorrhea, pharyngitis or notable lymphadenopathy. Cardiopulmonary: Pt denies chest pain, SOB, heart palpitations, dyspnea on exertion. Abdominal/GI: Pt denies abdominal pain, n/v/d. : Pt denies dysuria, burning w/ urination, frequency/urgency. Denies new onset urinary or bowel incontinence. MSK: Pt denies myalgia, loss of strength or function in extremities. Neuro: Pt denies new onset weakness, paresthesias. - Related Data Home Medications Medication Instructions Recorded Confirmed Pnv No.95/Ferrous Fum/Folic AC 1 tab PO DAILY 05/09/18 09/16/19 [ Multivitamin Tablet] Previous Rx's Medication Instructions Recorded HYDROcodone/APAP 5-325MG [[place] 1 each PO Q4HR PRN #18 tab 09/18/19 5-325] Ibuprofen [Motrin] 600 mg PO Q6HR PRN #30 tab 09/18/19 Allergies Allergy/AdvReac Type Severity Reaction Status Date / Time No Known Allergies Allergy Verified 09/11/19 15:04 Review of Systems ROS Statement: Those systems with pertinent positive or pertinent negative responses have been documented in the HPI. ROS Other: All systems not noted in ROS Statement are negative. Past Medical History Past Medical History: No Reported History Additional Past Medical History / Comment(s): Congenital deformity of fingers and toes History of Any Multi-Drug Resistant Organisms: None Reported Past Surgical History: No Surgical Hx Reported, Section Additional Past Surgical History / Comment(s): fingers seperated at 1 year of age Past Anesthesia/Blood Transfusion Reactions: No Reported Reaction Past Psychological History: No Psychological Hx Reported Smoking Status: Former smoker Past Alcohol Use History: None Reported Past Drug Use History: None Reported - Past Family History Mother Additional Family Medical History / Comment(s): congenital deformity of fingers and toes General Exam - General Exam Comments Initial Comments: Constitutional: NAD, AOX3, Pt has pleasant affect. HEENT: NC/AT, trachea midline, neck supple, no lymphadenopathy. Posterior pharynx non erythematous, without exudates. External ears appear normal, without discharge. Mucous membranes moist. Eyes PERRLA, EOM intact. There is no scleral icterus. No pallor noted. Cardiopulmonary: RRR, no murmurs, rubs or gallops, no JVD noted. Lungs CTAB in anterior and posterior morales. No peripheral edema. Abdominal exam: Abdomen soft and non-distended. Abdomen non-tender to palpation in all 4 quadrants. No ecchymoses. Bowel sounds active in LLQ. No hepatosplenomegaly. No ecchymosis Neuro: CN II-XII grossly intact. No nuchal rigidity. No raccon eyes, no lozoya sign, no hemotympanum. No cervical spinal tenderness. MSK: No posterior calf tenderness bilaterally, homans sign negative bilaterally. Posterior tibialis and radial pulse +2 bilaterally. Sensation intact in upper and lower extremities. Full active ROM in upper and lower extremities, 5/5 stregnth. Pelvic: Chaperoned by ANEUDY Dong. Pelvic exam displayed mild amount of blood in the posterior vaginal vault. Small blood clot noted from cervical os. Os is closed. No lesions no ulcerations. Bimanual exam displayed very mild cervical motion tenderness. Limitations: no limitations Course Vital Signs 10/05/19 20:25 Temperature 97.6 F Pulse Rate 81 Respiratory 18 Rate Blood Pressure 112/75 O2 Sat by Pulse 97 Oximetry Medical Decision Making - Medical Decision Making 23-year-old female patient with a pertinent past history of a section on September 16 presents to ED for chief complaint of vaginal bleeding. Patient reports that this began approximately one hour prior to arrival in the ED. Reports it is dark red blood. Prostate extremely mild amount of suprapubic discomfort. Denies any other discharge from vaginal region. Denies any fevers chills. Patient will signs stable, afebrile. Physical exam revealed: Abdomen soft, nontender to palpation, no ecchymoses. Pelvic exam displayed mild amount of blood in the posterior vaginal vault. Small blood clot noted from cervical os. Os is closed. No lesions no ulcerations. Bimanual exam displayed very mild cervical motion tenderness. CBC, CMP non-impressive. Hemoglobin 14. Transvaginal ultrasound displayed fluid-filled enlarged endometrial cavity measuring 6 x 2.6 cm. This could be ongoing bleeding or blood clot. Retained products excluded. Small amount of free fluid in the pelvis. She was evaluated by [employer] TE[employer] Dr. Ram. He believes that this is likely a blood clot liquefying. Offered her D&C in the morning. She declined. He recommended discharge with close patient follow-up on Monday. Return precautions for bleeding or pain. Case discussed with Dr. Han. - Lab Data Result diagrams: 10/05/19 21:13 10/05/19 21:13 Lab Results 10/05/19 10/05/19 10/05/19 Range/Units 21:13 21:13 21:13 WBC 5.2 (3.8-10.6) k/uL RBC 4.60 (3.80-5.40) m/uL Hgb 14.0 (11.4-16.0) gm/dL Hct 41.8 (34.0-46.0) % MCV 90.9 (80.0-100.0) fL MCH 30.4 (25.0-35.0) pg MCHC 33.5 (31.0-37.0) g/dL RDW 11.8 (11.5-15.5) % Plt Count 348 (150-450) k/uL Neutrophils % 57 % Lymphocytes % 28 % Monocytes % 6 % Eosinophils % 5 % Basophils % 1 % Neutrophils # 3.0 (1.3-7.7) k/uL Lymphocytes # 1.4 (1.0-4.8) k/uL Monocytes # 0.3 (0-1.0) k/uL Eosinophils # 0.3 (0-0.7) k/uL Basophils # 0.1 (0-0.2) k/uL Sodium 143 (137-145) mmol/L Potassium 4.1 (3.5-5.1) mmol/L Chloride 109 H (98-107) mmol/L Carbon Dioxide 26 (22-30) mmol/L Anion Gap 8 mmol/L BUN 12 (7-17) mg/dL Creatinine 0.69 (0.52-1.04) mg/dL Est GFR (CKD-EPI)AfAm >90 (>60 ml/min/1.73 sqM) Est GFR (CKD-EPI)NonAf >90 (>60 ml/min/1.73 sqM) Glucose 103 H (74-99) mg/dL Calcium 9.9 (8.4-10.2) mg/dL Total Bilirubin 0.2 (0.2-1.3) mg/dL AST 24 (14-36) U/L ALT 18 (9-52) U/L Alkaline Phosphatase 103 (38-126) U/L Total Protein 7.5 (6.3-8.2) g/dL Albumin 4.3 (3.5-5.0) g/dL Urine Color Urine Appearance (Clear) Urine pH (5.0-8.0) Ur Specific [place] (1.001-1.035) Urine Protein (Negative) Urine Glucose (UA) (Negative) Urine Ketones (Negative) Urine Blood (Negative) Urine Nitrite (Negative) Urine Bilirubin (Negative) Urine Urobilinogen (<2.0) mg/dL Ur Leukocyte Esterase (Negative) Urine RBC (0-5) /hpf Urine WBC (0-5) /hpf Urine Bacteria (None) /hpf Urine Mucus (None) /hpf Urine HCG, Qual Not Detected (Not Detectd) 10/05/19 Range/Units 21:13 WBC (3.8-10.6) k/uL RBC (3.80-5.40) m/uL Hgb (11.4-16.0) gm/dL Hct (34.0-46.0) % MCV (80.0-100.0) fL MCH (25.0-35.0) pg MCHC (31.0-37.0) g/dL RDW (11.5-15.5) % Plt Count (150-450) k/uL Neutrophils % % Lymphocytes % % Monocytes % % Eosinophils % % Basophils % % Neutrophils # (1.3-7.7) k/uL Lymphocytes # (1.0-4.8) k/uL Monocytes # (0-1.0) k/uL Eosinophils # (0-0.7) k/uL Basophils # (0-0.2) k/uL Sodium (137-145) mmol/L Potassium (3.5-5.1) mmol/L Chloride (98-107) mmol/L Carbon Dioxide (22-30) mmol/L Anion Gap mmol/L BUN (7-17) mg/dL Creatinine (0.52-1.04) mg/dL Est GFR (CKD-EPI)AfAm (>60 ml/min/1.73 sqM) Est GFR (CKD-EPI)NonAf (>60 ml/min/1.73 sqM) Glucose (74-99) mg/dL Calcium (8.4-10.2) mg/dL Total Bilirubin (0.2-1.3) mg/dL AST (14-36) U/L ALT (9-52) U/L Alkaline Phosphatase (38-126) U/L Total Protein (6.3-8.2) g/dL Albumin (3.5-5.0) g/dL Urine Color Yellow Urine Appearance Clear (Clear) Urine pH 7.0 (5.0-8.0) Ur Specific [place] 1.013 (1.001-1.035) Urine Protein Negative (Negative) Urine Glucose (UA) Negative (Negative) Urine Ketones Negative (Negative) Urine Blood Moderate H (Negative) Urine Nitrite Negative (Negative) Urine Bilirubin Negative (Negative) Urine Urobilinogen <2.0 (<2.0) mg/dL Ur Leukocyte Esterase Small H (Negative) Urine RBC 10 H (0-5) /hpf Urine WBC 3 (0-5) /hpf Urine Bacteria Rare H (None) /hpf Urine Mucus Rare H (None) /hpf Urine HCG, Qual (Not Detectd) Disposition Clinical Impression: Vaginal bleeding Disposition: HOME SELF-CARE Condition: Stable Instructions (If sedation given, give patient instructions): Bleeding (ED) Additional Instructions: Follow-up with [employer] TE[employer] Dr. Payne on Monday. Return to ER if heavy vaginal bleeding returns. Or any other symptoms develop. Is patient prescribed a controlled substance at d/c from ED?: No Referrals: Vincent Escalante MD [Primary Care Provider] - 1-2 days Omkar Payne MD [STAFF PHYSICIAN] - 1-2 days
--- NOTE | 2019-10-06 00:13 | P.OBCN ---
History of Present Illness Consult date: 10/06/19 Requesting physician: Zion Han Reason for consult: other Chief complaint: Vaginal bleeding History of present illness: Mirna is seen and evaluated in the emergency room. Review of her ultrasound lap was done. She is noted that she is 19 days postoperative from a section with Dr. Payne. She relates that her bleeding had basically stopped and then earlier tonight she began having dark red bleeding that was coming from her vagina she became concerned and came to the emergency room. On evaluation here today noted some dark bleeding and clot starting to form at the os of her cervix and ultrasound was done showing a 6 x 2 x 2 cm what appears to be blood clot in the uterus. Her hemoglobin however is 14. She has no pain no cramping no other signs or symptoms of hypovolemia and has no heavy vaginal bleeding and no bright red bleeding. I discussed with her the option of taking her for a D&C in the morning to try and clear this out with the understanding there is a s urgical risk and risk involved as well as potentially going home as the clot appears to be liquefying and likely will come out on its own. She is aware more anxious to get home with her that she is to have a D&C particularly in light of the fact that she has no bright red bleeding the bleeding is not considered heavy at all and is just more like liquefied old blood and she has no cramping or pain. She is therefore going to be discharged to home with instructions follow up with Dr. No on Monday. Should she have any heavy bright red bleeding any severe pain cramping changes or other issues at all she is to return immediately to the emergency room. Past Medical History Past Medical History: No Reported History Additional Past Medical History / Comment(s): Congenital deformity of fingers and toes History of Any Multi-Drug Resistant Organisms: None Reported Past Surgical History: No Surgical Hx Reported, Section Additional Past Surgical History / Comment(s): fingers seperated at 1 year of age Past Anesthesia/Blood Transfusion Reactions: No Reported Reaction Past Psychological History: No Psychological Hx Reported Smoking Status: Former smoker Past Alcohol Use History: None Reported Past Drug Use History: None Reported - Past Family History Mother Additional Family Medical History / Comment(s): congenital deformity of fingers and toes Medications and Allergies Home Medications Medication Instructions Recorded Confirmed Type Pnv No.95/Ferrous Fum/Folic AC 1 tab PO DAILY 05/09/18 09/16/19 History [ Multivitamin Tablet] HYDROcodone/APAP 5-325MG [[place] 1 each PO Q4HR PRN #18 tab 09/18/19 Rx 5-325] Ibuprofen [Motrin] 600 mg PO Q6HR PRN #30 tab 09/18/19 Rx Allergies Allergy/AdvReac Type Severity Reaction Status Date / Time No Known Allergies Allergy Verified 09/11/19 15:04 Exam Osteopathic Statement: *. No significant issues noted on an osteopathic structural exam other than those noted in the History and Physical/Consult. Vital Signs Temp Pulse Resp BP Pulse Ox 10/05/19 20:25 97.6 F 81 18 112/75 97 Intake and Output 10/05/19 10/05/19 10/06/19 14:59 22:59 06:59 Other: Weight 48.988 kg Results Result Diagrams: 10/05/19 21:13 10/05/19 21:13 Abnormal Lab Results - Last 24 Hours (Table) 10/05/19 10/05/19 Range/Units 21:13 21:13 Chloride 109 H (98-107) mmol/L Glucose 103 H (74-99) mg/dL Urine Blood Moderate H (Negative) Ur Leukocyte Esterase Small H (Negative) Urine RBC 10 H (0-5) /hpf Urine Bacteria Rare H (None) /hpf Urine Mucus Rare H (None) /hpf
== END 2019-10-06 00:28 | disposition home or self-care (01) ==
LOC: EC 20:17
DX: N93.9 Abnormal uterine and vaginal bleeding, unspecified (principal); Z32.02 Encounter for pregnancy test, result negative; Z87.891 Personal history of nicotine dependence
CPT/HCPCS: 36415; 76830; 80053; 81001; 81025; 85025; 93975; 99284

== ENCOUNTER → 2020-08-20 | Outpatient (CLI) | payer OTHER ==
--- NOTE | 2020-08-20 07:53 | US ---
EXAMINATION TYPE: Transabdominal DATE OF EXAM: 08/20/2020 7:28 AM COMPARISON: NONE CLINICAL HISTORY: Z36 confirm dates. Confirm dates, 3, para 2, history of EXAM PERFORMED: Transabdominal (TA) EXAM MEASUREMENTS: GESTATIONAL AGE / DATING Physician Established: (13 weeks/4 days) EDC: 02/21/2021 Dates by LMP: (13 weeks/4 days) EDC: 02/21/2021 Dates by First Scan: This is 1st scan Dates by Current Scan for: (12 weeks/2 days) EDC: 03/02/2021 MATERNAL ANATOMY Uterus: 15.2 x 7.4 x 10.8cm, anteverted Right Ovary: 2.3 x 2.6 x 1.3cm Left Ovary: 2.5 x 1.7 x 3.3cm Post CDS / Adnexa: wnl Presence of free fluid: no Presence of corpus luteal cyst: not seen Presence of subchorionic bleed: no GESTATION / SURVEY CRL: 5.7cm (12 weeks/2 days) Yolk Sac (normal less than 6mm): 5.1mm Heart Rate: 153 bpm Rhythm: Normal IUP: Viable IUP Nuchal Translucency 10-14wks (normal less than 3mm): 1.1mm Date of LMP: 05/17/2020 Beta HcG (if available): Not available at time of exam. Viable single IUP measuring 12 weeks 2 days with a heart rate of 153bpm and an estimated delivery jeannine e of 03/02/2021. IMPRESSION: 1. Single intrauterine gestation estimated at 12 weeks 2 days gestation based on crown-rump length. C ardiac activity measures 153 bpm.
[2020-08-20 07:56] LABS: HCT 36.8 % (34.0-46.0); MCH 29.7 pg (25.0-35.0); MCHC 32.7 g/dL (31.0-37.0); MCV 90.8 fL (80.0-100.0); Mean Platelet Volume 7.4; Platelet Count 239 k/uL (150-450); RBC 4.05 m/uL (3.80-5.40); RDW 13.6 % (11.5-15.5)
[2020-08-20 08:13] LABS: African American GFR (CKD) >90 (>60 ml/min/1.73 sqM); Glucose 76 mg/dL (74-99); Non-African American GFR(CKD) >90 (>60 ml/min/1.73 sqM)
[2020-08-20 20:29] LABS: Hepatitis B Surface Antigen Non-Reactive (Non-Reactive)
== END | disposition home or self-care (01) ==
LOC: RADUSWWP 07:01
PROVIDERS: ATTEND Obstetrics & Gynecology
DX: Z34.81 Encounter for supervision of other normal pregnancy, first trimester (principal); Z3A.12 12 weeks gestation of pregnancy
CPT/HCPCS: 76801; 76813; 82565; 82947; 85027; 86762; 86780; 86850; 86900; 86901; 87340

== ENCOUNTER 2021-02-11 07:25 | Observation (INO) | payer OTHER ==
[2021-02-11 08:15] LABS: Appearance,Urine Cloudy (Clear); Bilirubin,Urine Negative (Negative); Blood,Urine Small (Negative); Color,Urine Yellow; Glucose,Urine (UA) Negative (Negative); Hyaline Casts,Urine 1 /lpf (0-2); Ketones,Urine Negative (Negative); Leukocyte Esterase,Urine Moderate (Negative); Mucus,Urine Moderate /hpf; Nitrite,Urine Negative (Negative); Protein,Urine Trace (Negative); RBC,Urine 22 /hpf (0-5); Squamous Epithelial Cell,Urine 9 /hpf (0-4); Urobilinogen,Urine <2.0 mg/dL (<2.0); WBC,Urine 13 /hpf (0-5)
[2021-02-11] MEDS: LACTATED RINGERS 1,000 ML IV SCH ×4 (09:00→17:17)
[2021-02-11] MEDS ORDERED: ONDANSETRON 4 MG/2 ML VIAL IVP PRN (09:33)
[2021-02-11] MEDS: BUTORPHANOL 1 MG/ML 1 ML VIAL IV PRN ×5 (09:54→20:13)
--- NOTE | 2021-02-11 10:16 | US ---
EXAMINATION TYPE: US kidneys/renal and bladder DATE OF EXAM: 02/11/2021 COMPARISON: NONE CLINICAL HISTORY: severe back pain, possible kidney stones. Pt states sudden right flank pain, micros copic hematuria, pt approx 37 weeks EXAM MEASUREMENTS: Right Kidney: 12.3 x 4.7 x 5.2 cm Left Kidney: 11.7 x 4.3 x 4.8 cm Right Kidney: Mild hydro, varicosities medial to right kidney Left Kidney: Appeared wnl Bladder: Empty Patient is , the fetus was not evaluated during this exam. IMPRESSION: Mild right hydronephrosis.
[2021-02-11 11:44] LABS: Basophils % (A) 0 %; Eosinophils # (A) 0.1 k/uL (0-0.7); Eosinophils % (A) 1 %; HGB 11.4 gm/dL (11.4-16.0); Lymphocytes # (A) 0.8 k/uL (1.0-4.8); Lymphocytes % (A) 10 %; MCH 32.2 pg (25.0-35.0); MCHC 34.7 g/dL (31.0-37.0); Mean Platelet Volume 7.1; Monocytes # (A) 0.5 k/uL (0-1.0); Monocytes % (A) 6 %; Neutrophils # (A) 6.4 k/uL (1.3-7.7); Neutrophils % (A) 81 %; Platelet Count 252 k/uL (150-450); RBC 3.55 m/uL (3.80-5.40); RDW 12.9 % (11.5-15.5); WBC 7.9 k/uL (3.8-10.6)
[2021-02-11] MEDS: LACTATED RINGERS 500 ML IV SCH (11:54)
--- NOTE | 2021-02-11 12:56 | P.HPOB ---
History of Present Illness H&P Date: 02/11/21 Chief Complaint: Right back pain This patient is a pleasant 25-year-old 3 para 2 female estimated date of confinement 03/02/2021 estimated gestational age 37-2/7 who awoke this morning about 4 AM with sudden right-sided flank pain. Pain persisted and was constant and therefore she presents to labor and delivery for evaluation. Evaluation here does show some microscopic hematuria and a renal ultrasound shows some mild right hydronephrosis with no definitive stone. has been uncomplicated and she is scheduled for repeat in approximately 2 weeks. Patient denies fever, nausea or vomiting. Patient denies vaginal bleeding or uterine contractions. Review of Systems Musculoskeletal: Reports as per HPI Past Medical History Past Medical History: No Reported History Additional Past Medical History / Comment(s): Congenital deformity of fingers and toes History of Any Multi-Drug Resistant Organisms: None Reported Past Surgical History: No Surgical Hx Reported, Section Additional Past Surgical History / Comment(s): fingers seperated at 1 year of age Past Anesthesia/Blood Transfusion Reactions: No Reported Reaction Past Psychological History: No Psychological Hx Reported Smoking Status: Never smoker Past Drug Use History: None Reported - Past Family History Mother Additional Family Medical History / Comment(s): congenital deformity of fingers and toes Medications and Allergies Home Medications Medication Instructions Recorded Confirmed Type Pnv No.95/Ferrous Fum/Folic AC 1 tab PO DAILY 05/09/18 02/11/21 History [ Multivitamin Tablet] Allergies Allergy/AdvReac Type Severity Reaction Status Date / Time No Known Allergies Allergy Verified 02/11/21 07:49 Exam Vital Signs Temp Pulse Resp BP 02/11/21 12:00 96.8 F L 79 16 98/62 02/11/21 10:02 97.5 F L 78 16 105/62 02/11/21 07:51 97.1 F L 93 18 116/57 Intake and Output 02/10/21 02/11/21 02/11/21 22:59 06:59 14:59 Other: Weight 54.431 kg Results Result Diagrams: 02/11/21 11:13 Abnormal Lab Results - Last 24 Hours (Table) 02/11/21 02/11/21 Range/Units 08:00 11:13 RBC 3.55 L (3.80-5.40) m/uL Hct 33.0 L (34.0-46.0) % Lymphocytes # 0.8 L (1.0-4.8) k/uL Urine Appearance Cloudy H (Clear) Urine Protein Trace H (Negative) Urine Blood Small H (Negative) Ur Leukocyte Esterase Moderate H (Negative) Urine RBC 22 H (0-5) /hpf Urine WBC 13 H (0-5) /hpf Ur Squamous Epith Cells 9 H (0-4) /hpf Urine Mucus Moderate H (None) /hpf Assessment and Plan Assessment: This is a pleasant 25-year-old 3 para 2 female 37 and one sevenths weeks gestation with right-sided flank pain, microscopic hematuria and symptomatology consistent with possible kidney stone. At this time there is no evidence of labor or other pathology. Plan is to admit for IV hydration, IV pain management and surveillance. (1) 37 weeks gestation of Current Visit: Yes Status: Acute Code(s): Z3A.37 - 37 WEEKS GESTATION OF SNOMED Code(s): 42309180 (2) Flank pain in patient Current Visit: Yes Status: Acute Code(s): O26.899 - OTH RELATED CONDITIONS, UNSPECIFIED TRIMESTER; R10.9 - UNSPECIFIED ABDOMINAL PAIN SNOMED Code(s): 745508174
[2021-02-11] MEDS ORDERED: ACETAMINOPHEN TAB 325 MG TAB PO PRN (17:16)
--- NOTE | 2021-02-11 18:10 | P.PN ---
Progress Note - Text Progress Note Date: 02/11/21 Patient continues to have right sided back pain requiring IV pain medications. FHTs are reactive. No contractions. Renal ultrasound with mild hydro nephrosis on the right, no stone seen. CBC normal. I am going to get OB ultrasound this evening and repeat labs in the morning.
[2021-02-11] MEDS: ACETAMINOPHEN TAB 325 MG TAB PO PRN (18:20)
--- NOTE | 2021-02-11 18:35 | US ---
EXAMINATION TYPE: US OB >= 14 wk fetus DATE OF EXAM: 02/11/2021 COMPARISON: US CLINICAL HISTORY: Abdominal pain. Right flank pain radiating to abdomen today; . See Renal US tod ay for patient. Patient stated is scheduled for C section 02/25/2021. TECHNIQUE: Transabdominal - TA ED study GESTATIONAL AGE / DATING Physician Established: (37 weeks/2 days) EDC: 03/02/2021 Dates by LMP: (38 weeks/4 days) EDC: 02/21/2021 Dates by First Scan: (37 weeks/2 days) EDC: 03/02/2021 Dates by Current Scan: (35 weeks/6 days) EDC: 03/12/2021 Beta HCG (if available): NA SURVEY IUP: Single PLACENTA: Anterior PREVIA: No Previa ANITA: 12.2 cm Normal CERVICAL LENGTH (transabdominal: norm > 3.0cm): 3.4 cm BIOMETRY PRESENTATION: Vertex LIE: Longitudinal BPD: 9.2 cm 37 weeks / 3 days HC: 32.6 cm 36 weeks / 6 days AC: 31.9 cm 35 weeks / 6 days FL: 6.9 cm 35 weeks / 2 days ESTIMATED WEIGHT IN GRAMS: 2818.0 grams ESTIMATED WEIGHT IN LBS/OZ: 6 lbs. 3 oz. WEIGHT PERCENTAGE BASED ON ESTABLISHED DATES: 24.5% HC/AC: 1.02 Normal FL/AC: 21.55 Normal HEART RATE: 127 bpm RHYTHM: Normal IMPRESSION: SINGLE, LIVE INTRAUTERINE 35 WEEKS/6 DAYS WITH EDC 03/12/2021 AND WITH HR 127 BPM.
[2021-02-11 23:56] VITALS: PULSE 78
[2021-02-12] MEDS: BUTORPHANOL 1 MG/ML 1 ML VIAL IV PRN (00:14)
[2021-02-12] MEDS: LACTATED RINGERS 1,000 ML IV SCH (01:29)
[2021-02-12] MEDS: ACETAMINOPHEN TAB 325 MG TAB PO PRN (02:59)
[2021-02-12 04:03] VITALS: BP 100/52; RESP 18; TEMP 98
[2021-02-12 06:31] LABS: Basophils % (A) 0 %; Eosinophils # (A) 0.1 k/uL (0-0.7); Eosinophils % (A) 2 %; HCT 29.3 % (34.0-46.0); HGB 10.2 gm/dL (11.4-16.0); Lymphocytes # (A) 0.7 k/uL (1.0-4.8); Lymphocytes % (A) 10 %; MCH 32.4 pg (25.0-35.0); MCHC 34.9 g/dL (31.0-37.0); MCV 92.9 fL (80.0-100.0); Mean Platelet Volume 7.2; Monocytes # (A) 0.6 k/uL (0-1.0); Monocytes % (A) 8 %; Neutrophils % (A) 80 %; Platelet Count 233 k/uL (150-450); RBC 3.15 m/uL (3.80-5.40); RDW 12.9 % (11.5-15.5); WBC 7.5 k/uL (3.8-10.6)
[2021-02-12] MEDS ORDERED: HYDROcodone/APAP 5-325MG 1 EACH TAB PO PRN (06:31)
[2021-02-12 06:34] LABS: ALT 11 U/L (4-34); AST 25 U/L (14-36); African American GFR (CKD) >90 (>60 ml/min/1.73 sqM); Albumin 2.7 g/dL (3.5-5.0); Alkaline Phosphatase 120 U/L (38-126); Anion Gap 5 mmol/L; Blood Urea Nitrogen 4 mg/dL (7-17); Calcium 8.2 mg/dL (8.4-10.2); Carbon Dioxide 24 mmol/L (22-30); Chloride 107 mmol/L (98-107); Glucose 65 mg/dL (74-99); Non-African American GFR(CKD) >90 (>60 ml/min/1.73 sqM); Potassium 3.7 mmol/L (3.5-5.1); Sodium 136 mmol/L (137-145); Total Bilirubin 0.5 mg/dL (0.2-1.3); Total Protein 5.3 g/dL (6.3-8.2)
--- NOTE | 2021-02-12 06:39 | P.PN ---
Progress Note - Text Progress Note Date: 02/12/21 Patient is resting without new complaints. Last evening she passed a fairly large kidney stone. Is feeling better since that time is still some pain. Vital signs are stable and she is afebrile. Obstetrical ultrasound was normal. Patient is tolerating regular diet and fluids. My impression the patient has passed at least 1 kidney stone is feeling better, good enough to go home on oral pain medications as needed. She'll follow up with me in 1 week
--- NOTE | 2021-02-12 06:47 | P.DS ---
Providers Date of admission: 02/11/21 09:42 Expected date of discharge: 02/12/21 Attending physician: Royal Ram Primary care physician: Stated None - Discharge Diagnosis(es) (1) 37 weeks gestation of Current Visit: Yes Status: Acute (2) Flank pain in patient Current Visit: Yes Status: Acute Hospital Course: Please see dictated H&P for intimate details of this patient's admission. Brief summary is a pleasant 25-year-old 3 para 2 female 37 weeks gestation admitted with right back and flank pain and microscopic hematuria. Patient's felt to have a kidney stones admitted for IV hydration and pain control. Later in the day she did pass a fairly good sized kidney stones and her pain improved. Watched her overnight she continued to have some pain but I thought was stable enough to go home on oral pain medications. Patient discharged home follow up w sumanth mcelroy in 1 week as scheduled. Patient Condition at Discharge: Good Plan - Discharge Summary New Discharge Prescriptions: New HYDROcodone/APAP 5-325MG [[place] 5-325] 1 each PO Q4HR PRN #18 tab PRN Reason: Pain No Action Pnv No.95/Ferrous Fum/Folic AC [ Multivitamin Tablet] 1 tab PO DAILY Discharge Medication List Pnv No.95/Ferrous Fum/Folic AC [ Multivitamin Tablet] 1 tab PO DAILY 05/09/18 [History] HYDROcodone/APAP 5-325MG [[place] 5-325] 1 each PO Q4HR PRN #18 tab 02/12/21 [Rx] Follow up Appointment(s)/Referral(s): Omkar Payne MD [Family Provider] - 1 Week Patient Instructions/Handouts: Kidney Stones (DC) Activity/Diet/Wound Care/Special Instructions: Drink lots of fluids as instructed. Take Tylenol for pain and [place] for breakthrough pain. Please see me in 1 week as scheduled. Discharge Disposition: HOME SELF-CARE
== END 2021-02-12 08:55 | disposition home or self-care (01) ==
LOC: FBPOP 07:25 → 4FBP 09:42
PROVIDERS: ADMIT Obstetrics & Gynecology; ATTEND Obstetrics & Gynecology
DX: O26.833 Pregnancy related renal disease, third trimester (principal); N13.2 Hydronephrosis with renal and ureteral calculous obstruction; Z3A.37 37 weeks gestation of pregnancy; O34.219 Maternal care for unspecified type scar from previous cesarean delivery; Q89.9 Congenital malformation, unspecified; Z82.79 Family history of other congenital malformations, deformations and chromosomal abnormalities
CPT/HCPCS: 59025; 96376 ×2; 96361; 96374; 96375; 80053; 85025 ×2; 81001; 76805; 76770; G0463; J0595 ×2; J2405; 96360; 99214

== ENCOUNTER 2021-02-25 05:55 | Inpatient (IN) | payer OTHER ==
--- NOTE | 2021-02-24 12:59 | P.HPOB ---
History of Present Illness H&P Date: 02/24/21 Chief Complaint: Repeat and tubal ligation. This patient is a pleasant 25-year-old 3 para 2 female estimated date of confinement 03/10/2021 estimated gestational age 39-2/7 weeks who presents to labor and delivery for elective repeat section and also requesting permanent sterilization. She is care has been uncomplicated with the exception of an admission for kidney stone at 37 weeks which she passed. Patient also has a congenital digit anomaly which she did not request evaluation of. Patient had a previous section and request repeat at this time. She also wants permanent sterilization. Review of Systems Genitourinary: Reports Menstruation: Reports amenorrhea Past Medical History Past Medical History: No Reported History Additional Past Medical History / Comment(s): Congenital deformity of fingers and toes History of Any Multi-Drug Resistant Organisms: None Reported Past Surgical History: No Surgical Hx Reported, Section Additional Past Surgical History / Comment(s): fingers seperated at 1 year of age Past Anesthesia/Blood Transfusion Reactions: No Reported Reaction Past Psychological History: No Psychological Hx Reported Smoking Status: Never smoker Past Alcohol Use History: None Reported Past Drug Use History: None Reported - Past Family History Mother Additional Family Medical History / Comment(s): congenital deformity of fingers and toes Medications and Allergies Home Medications Medication Instructions Recorded Confirmed Type Pnv No.95/Ferrous Fum/Folic AC 1 tab PO DAILY 05/09/18 02/11/21 History [ Multivitamin Tablet] HYDROcodone/APAP 5-325MG [[place] 1 each PO Q4HR PRN #18 tab 02/12/21 Rx 5-325] Allergies Allergy/AdvReac Type Severity Reaction Status Date / Time No Known Allergies Allergy Verified 02/11/21 07:49 Exam - OBG Physical Exam Abdomen: bowel sounds normal, no diffuse tenderness, no bruit present, no g uarding noted, no hepatomegaly, no splenomegaly, no mass Vulva: both: normal Vagina: normal moisture, no discharge Cervix: no lesion (Cervix is closed), no discharge Uterus: enlarged (Undesired is consistent with a term ) Results blood work shows she is O negative, rubella immune, RPR nonreactive, hepatitis B is negative, Glucola was normal, group B strep was negative, ultrasounds of shown normal anatomy and growth. She received RhoGAM on December 07. Assessment and Plan Assessment: This is a pleasant 25-year-old 3 para 2 female 39-2/7 weeks gestation who is admitted to labor and delivery for elective repeat section and also permanent sterilization. Plan is repeat low transverse section and bilateral partial salpingectomy. Patient does understand that a tubal ligation is considered permanent, although there is a failure rate of approximately less than 5 per thousand procedures done. She understands if she does become she has a 50% chance of a tubal or an ectopic . She also understands that surgery itself has risks including risks of infection, bleeding, possible injury to bowel, bladder, vessels, and/or other organs. Patient understands risk of DVT and pulmonary embolism. All the patient's questions are answered written consent obtained. (1) 39 weeks gestation of Status: Acute Code(s): Z3A.39 - 39 WEEKS GESTATION OF SNOMED Code(s): 31109830 (2) Rh negative status during Status: Acute Code(s): O09.899 - SUPERVISION OF OTHER HIGH RISK PREGNANCIES, UNSP TRIMESTER; Z67.91 - UNSPECIFIED BLOOD TYPE, RH NEGATIVE SNOMED Code(s): 633998547 (3) Previous delivery affecting Status: Acute Code(s): O34.219 - MATERNAL CARE FOR UNSP TYPE SCAR FROM PREVIOUS DEL SNOMED Code(s): 432103202 (4) Family planning Status: Acute Code(s): Z30.09 - ENCOUNTER FOR OTH GENERAL CNSL AND ADVICE ON CONTRACEPTION SNOMED Code(s): 577598494
[2021-02-24 14:05] VITALS: BMI 22.6
[2021-02-25] MEDS ORDERED: CITRIC ACID-SODIUM CITRATE 15 ML CUP PO ONE (06:06)
[2021-02-25] MEDS ORDERED: LACTATED RINGERS 1,000 ML IV ONE (06:06)
[2021-02-25 06:47] LABS: Basophils % (A) 0 %; Eosinophils # (A) 0.2 k/uL (0-0.7); Eosinophils % (A) 3 %; HCT 33.5 % (34.0-46.0); HGB 11.6 gm/dL (11.4-16.0); Lymphocytes # (A) 1.1 k/uL (1.0-4.8); Lymphocytes % (A) 18 %; MCH 31.9 pg (25.0-35.0); MCHC 34.7 g/dL (31.0-37.0); MCV 91.7 fL (80.0-100.0); Mean Platelet Volume 7.3; Monocytes # (A) 0.5 k/uL (0-1.0); Monocytes % (A) 8 %; Neutrophils # (A) 4.1 k/uL (1.3-7.7); Neutrophils % (A) 68 %; Platelet Count 288 k/uL (150-450); RBC 3.66 m/uL (3.80-5.40); RDW 12.7 % (11.5-15.5)
[2021-02-25] MEDS: LACTATED RINGERS 1,000 ML IV SCH (06:51)
[2021-02-25] MEDS ORDERED: NALBUPHINE 10 MG/ML (1 ML AMP) ONE (07:54)
[2021-02-25] MEDS ORDERED: OXYTOCIN 10 UNIT/ML 1 ML VIAL ONE (07:54)
[2021-02-25] MEDS ORDERED: ePHEDrine SULFATE/0.9% NACL/PF 50 MG/5 ML SYRINGE IV ONE (07:54)
[2021-02-25] MEDS ORDERED: MORPHINE SULFATE (PF) 0.3 MG/0.3 ML SYR ONE (07:54)
[2021-02-25] MEDS ORDERED: ONDANSETRON 4 MG/2 ML VIAL ONE (07:54)
[2021-02-25] MEDS ORDERED: KETOROLAC 15 MG/ML 1 ML VIAL ONE (07:54)
[2021-02-25] MEDS ORDERED: fentaNYL (PF) 50 MCG/ML 2 ML AMP ONE (07:54)
[2021-02-25] MEDS ORDERED: diphenhydrAMINE 50 MG/ML 1 ML VIAL IVP PRN ×2 (08:22→08:55)
[2021-02-25] MEDS ORDERED: NALOXONE 0.4 MG/ML 1 ML VIAL IV PRN ×2 (08:22→08:55)
[2021-02-25] MEDS ORDERED: KETOROLAC 15 MG/ML 1 ML VIAL IVP PRN ×2 (08:22→08:55)
[2021-02-25] MEDS ORDERED: ONDANSETRON 4 MG/2 ML VIAL IVP PRN ×2 (08:22→08:55)
[2021-02-25] MEDS ORDERED: HYDROmorphone 0.5 MG/0.5 ML SYRINGE IVP PRN (08:22)
--- NOTE | 2021-02-25 08:50 | P.OP ---
Date of Procedure: 02/25/21 Preoperative Diagnosis: #1: 39-2/7 week intrauterine . #2: Previous section desires repeat. #3: Multi parity desires permanent sterilization Postoperative Diagnosis: #1: Same. #2: Congenital digit anomaly Procedure(s) Performed: Repeat low transverse section and bilateral partial salpingectomy Anesthesia: spinal Surgeon: Omkar Payne Scaler #1: Royal Ram Estimated Blood Loss (ml): 600 Pathology: other (Placenta and bilateral fallopian tube segments) Condition: stable Disposition: floor Indications for Procedure: Please see dictated H&P for intimate details of this patient's admission. Brief summary is a pleasant 25-year-old 3 para 2 female 39-2/7 weeks gestation admitted to labor and delivery for elective repeat section and also requesting permanent sterilization. Patient understands this surgery and risks including risks of infection, bleeding, possible injury bowel, bladder, vessels, and/or other organs. All the patient's questions are answered written consent is obtained. Operative Findings: This is a vigorous viable female infant Apgars 9 and 9 delivery time is 0809 hrs. had deformities of all distal extremities, consistent with the mother's congenital history. Description of Procedure: This patient is taken to the operating room where she is sat up and spinal anesthetic is administered without incident. Fine catheter had already been placed to straight drain. With an adequate level of anesthesia, she has abdominal prep and drape. Scalpels and taken the previous Pfannenstiel incision is incised. A second scalpel is taken down the fascia the fascia scored with a knife. Fascial incision extended bilaterally using the Paul scissors. Fascia is then dissected off the rectus muscles sharply. Rectus muscles are the peritoneum identified and entered sharply. Peritoneal incision extended superior and inferior without difficulty. Bladder blade is then placed. Bladder peritoneum was then taken off the lower uterine segment sharply. Scalpels and taken low transverse uterine incision is then made. Using a hemostat I bluntly entered the uterine cavity. There is loss of clear fluid. This incision is extended bluntly. The infant's head is then guided through the incision with fundal pressure. Mouth and nares are bulb suctioned. There is no evidence of nuchal cord. With gentle fundal pressure we then have deliver the rest this infant's body. Is a vigorous viable female Apgars 9 and 9 delivery time is 0809 hrs. Infant has spontaneous respiration and good cry. Of note all 4 extremities have distal digit anomalies consistent with the mother's congenital condition. Umbilical cord is doubly clamped and cut. Placenta is then manually extracted intact. Uterus is then externalized and uterine incision demarcated with Grossman clamps. Uterine incision closed using 0 Vicryl running locked fashion 2 layers. Excellent hemostasis is noted. Then turned my attention to the left fallopian tube approximately 4 cm from the cornual insertion a small window is made to the mesial salpinx. Using a 2-0 silk I doubly ligate a 2 cm segment of the tube. This is then excised and the tubal ends are cauterized. Excellent hemostasis is noted. Then turned my attention of the right fallopian tube in similar technique with similar results. With this done excess fluid is removed from the abdomen and pelvis. Uterus placed back into the abdomen. Final inspection of the tubal ends and the uterine incision showed all to be hemostatic. Parietal peritoneum was then closed using 0 Vicryl running fashion. Rectus muscle reapproximate 0 Vicryl interrupted fashion. Fascial incision is intact and then closed using 0 PDS running fashion. Fascial incision is intact and hemostatic. Subcutaneous tissues and closed using a 3-0 Vicryl. Skin is and closed using devika. All counts are correct 3. There are no complications. Infant and mother are taken to the birthing suite in satisfactory condition.
[2021-02-25] MEDS ORDERED: LANOLIN CREAM 5 GM TUBE TOPICAL PRN (08:55)
[2021-02-25] MEDS ORDERED: METOCLOPRAMIDE 5 MG/ML 2 ML VIAL IVP PRN (08:55)
[2021-02-25] MEDS ORDERED: SIMETHICONE 80 MG CHEWABLE PO PRN (08:55)
[2021-02-25] MEDS ORDERED: diphenhydrAMINE 25 MG CAP PO PRN (08:55)
[2021-02-25] MEDS ORDERED: ZOLPIDEM 5 MG TAB PO PRN (08:55)
[2021-02-25] MEDS ORDERED: Rhogam IMMUNE GLOBULIN 1,500 UNIT/1 ML IM ONE (08:55)
[2021-02-25] MEDS ORDERED: OXYTOCIN 30 UNITS/500 ML NS 30 UNIT in SALINE 1 500ML.BAG IV SCH (08:55)
[2021-02-25] MEDS: SENNOSIDES-DOCUSATE SODIUM 1 EACH TAB PO SCH (09:27)
--- NOTE | 2021-02-26 06:06 | P.PNOBGPC ---
Subjective - Subjective Patient reports: Reports appetite normal, Reports voiding normally, Reports pain well controlled, Reports ambulating normally : doing well Objective - Vital Signs Latest vital signs: Vital Signs Temp Pulse Resp BP Pulse Ox 02/26/21 05:00 16 98 02/26/21 04:00 62 16 89/57 02/26/21 03:00 16 02/26/21 01:00 98 02/25/21 23:55 97.5 F L 79 16 102/63 99 02/25/21 23:00 16 02/25/21 21:00 99 02/25/21 20:00 97.6 F 67 16 97/68 02/25/21 18:48 16 02/25/21 17:00 16 98 02/25/21 15:51 97.5 F L 70 18 98/62 02/25/21 15:00 16 02/25/21 13:23 98 02/25/21 13:00 16 02/25/21 12:00 98.4 F 63 17 112/70 02/25/21 11:23 16 98 02/25/21 10:37 98.3 F 64 17 106/63 98 02/25/21 10:08 66 17 126/62 02/25/21 09:37 98.3 F 62 16 104/74 98 02/25/21 09:24 59 L 17 102/73 98 02/25/21 09:23 17 96 02/25/21 09:09 65 17 107/66 98 02/25/21 08:56 16 98 02/25/21 08:54 70 16 112/69 99 02/25/21 08:39 97.4 F L 62 17 105/61 99 Intake and Output 02/25/21 02/25/21 02/26/21 14:59 22:59 06:59 Output Total 650 100 75 Balance -650 -100 -75 Output: Urine 650 100 75 Uretheral (Fine) 100 - Exam Lungs: bilateral: normal Chest: Normal S1, Normal S2 Extremities: Present: normal Abdomen: Present: normal appearance, soft. Absent: distention, tenderness Incision: Present: normal, dry, intact Uterus: Present: normal, firm - Labs Labs: Abnormal Lab Results - Last 24 Hours (Table) 02/25/21 Range/Units 06:20 RBC 3.66 L (3.80-5.40) m/uL Hct 33.5 L (34.0-46.0) % Assessment and Plan Assessment: Postoperative day #1. Patient is resting without complaints. Vital signs are stable and she is afebrile. Uterus is firm nontender and her incision is intact and dry. CBC is pending at the time of this dictation. Patient is urinating and tolerating regular diet. My impression this is a normal post operative course. Plan is to allow the patient to shower, encourage ambulation, check a CBC, and continue routine postoperative care. (1) 39 weeks gestation of Current Visit: No Status: Acute Code(s): Z3A.39 - 39 WEEKS GESTATION OF SNOMED Code(s): 08110060 (2) Rh negative status during Current Visit: No Status: Acute Code(s): O09.899 - SUPERVISION OF OTHER HIGH RISK PREGNANCIES, UNSP TRIMESTER; Z67.91 - UNSPECIFIED BLOOD TYPE, RH NEGATIVE SNOMED Code(s): 118585833 (3) Previous delivery affecting Current Visit: No Status: Acute Code(s): O34.219 - MATERNAL CARE FOR UNSP TYPE SCAR FROM PREVIOUS DEL SNOMED Code(s): 843117261 (4) Family planning Current Visit: No Status: Acute Code(s): Z30.09 - ENCOUNTER FOR OTH GENERAL CNSL AND ADVICE ON CONTRACEPTION SNOMED Code(s): 747829333
[2021-02-26 07:52] LABS: Basophils % (A) 0 %; Eosinophils # (A) 0.1 k/uL (0-0.7); Eosinophils % (A) 1 %; HGB 9.7 gm/dL (11.4-16.0); Lymphocytes # (A) 0.7 k/uL (1.0-4.8); Lymphocytes % (A) 9 %; MCH 30.6 pg (25.0-35.0); MCHC 32.5 g/dL (31.0-37.0); MCV 94.2 fL (80.0-100.0); Mean Platelet Volume 7.8; Monocytes # (A) 0.5 k/uL (0-1.0); Monocytes % (A) 7 %; Neutrophils # (A) 6.1 k/uL (1.3-7.7); Neutrophils % (A) 80 %; Platelet Count 249 k/uL (150-450); RBC 3.18 m/uL (3.80-5.40); RDW 13.2 % (11.5-15.5); WBC 7.6 k/uL (3.8-10.6)
--- NOTE | 2021-02-26 09:54 | P.PN ---
Progress Note - Text Progress Note Date: 02/26/21 Postoperative day 1 status post section under spinal anesthesia, and i ntrathecal morphine given for postoperative analgesia, patient doing well, there is no anesthesia related complications, Patient had no headache, vital signs stable , Assessment and plan= postop day 1 status post , doing well there is no anesthesia related complication.
[2021-02-26] MEDS: IBUPROFEN 600 MG TAB PO PRN ×2 (11:45→20:05)
[2021-02-26] MEDS: SENNOSIDES-DOCUSATE SODIUM 1 EACH TAB PO SCH ×3 (18:49→21:56)
[2021-02-26] MEDS: LACTATED RINGERS 1,000 ML IV SCH (22:01)
--- NOTE | 2021-02-27 07:11 | P.DS ---
Providers Date of admission: 02/25/21 05:55 Expected date of discharge: 02/27/21 Attending physician: Omkar Payne Primary care physician: Stated None - Discharge Diagnosis(es) (1) Status post repeat low transverse section Current Visit: Yes Status: Acute Hospital Course: Patient presented for repeat low transverse . She underwent this procedure without complication. She her postoperative course was uneventful. Her pain is well-controlled and she is tolerating regular diet. Denies nausea, vomiting, chest pain, shortness breath or any calf pain. Her incision is clean, dry, intact with devika. She'll be discharged home post operative day #2 in stable condition to follow-up with Dr. Payne in one week. Plan - Discharge Summary Discharge Rx Participant: Yes New Discharge Prescriptions: New Ibuprofen [Motrin] 600 mg PO Q6H PRN #30 tab PRN Reason: Pain oxyCODONE HCL [OxyIR] 5 mg PO Q4HR PRN #18 tab PRN Reason: Pain No Action Pnv No.95/Ferrous Fum/Folic AC [ Multivitamin Tablet] 1 tab PO DAILY Discharge Medication List Pnv No.95/Ferrous Fum/Folic AC [ Multivitamin Tablet] 1 tab PO DAILY 05/09/18 [History] Ibuprofen [Motrin] 600 mg PO Q6H PRN #30 tab 02/26/21 [Rx] oxyCODONE HCL [OxyIR] 5 mg PO Q4HR PRN #18 tab 02/26/21 [Rx] Follow up Appointment(s)/Referral(s): Omkar Payne MD [STAFF PHYSICIAN] - 03/08/21 1:30 pm (Please see me on April 05 at 245 as well for your check.) Patient Instructions/Handouts: (DC) Activity/Diet/Wound Care/Special Instructions: No heavy lifting or strenuous activity for 6 weeks. No intercourse or anything per vagina for 6 weeks. Please call if any fever, chills, excessive vaginal abdominal pain. Discharge Disposition: HOME SELF-CARE
[2021-02-27 09:27] VITALS: BP 100/69; PULSE 73; RESP 18; TEMP 97.6
== END 2021-02-27 10:49 | disposition home or self-care (01) | DRG 784 ==
LOC: 4FBP 05:55
PROVIDERS: ADMIT Obstetrics & Gynecology; ATTEND Obstetrics & Gynecology
PROC: 0UB70ZZ Excision of Bilateral Fallopian Tubes, Open Approach (ICD-10-PCS; 2021-02-25)
PROC: 10D00Z1 Extraction of Products of Conception, Low, Open Approach (ICD-10-PCS; principal; 2021-02-25 08:00)
DX: O34.211 Maternal care for low transverse scar from previous cesarean delivery (principal); O26.833 Pregnancy related renal disease, third trimester; O26.893 Other specified pregnancy related conditions, third trimester; Z30.2 Encounter for sterilization; Z37.0 Single live birth; Z3A.39 39 weeks gestation of pregnancy; Z67.91 Unspecified blood type, Rh negative
CPT/HCPCS: 85025; 85461; 86850; 86870; 86880; 86900; 86901; 88302; 88307